=== PATIENT | female | born 1985 | race Caucasian/White ===

== ENCOUNTER 2023-08-05 19:51 | Emergency (ER) | payer BC, SELFPAY ==
[2023-08-05 20:01] VITALS: BP 136/80
[2023-08-05 20:18] LABS: Hematocrit 34.7 % (37.0-47.0); Hemoglobin 11.7 g/dL (12.0-16.0); Mean Corp Hgb Conc. 33.7 g/dL (33.0-37.0); Mean Corpuscular Hgb 29.4 pg (27.0-31.0); Mean Corpuscular Volume 87.2 fL (81.0-99.0); Mean Platelet Volume 8.7 fL (7.4-10.4); Platelet Count 376 10^3/uL (130-400); Red Blood Cell Count 3.98 10^6/uL (4.20-5.40); Red Cell Dist. Width 13.2 % (11.5-14.5)
[2023-08-05 20:38] LABS: Blood Urea Nitrogen 10 mg/dl (7-17); Calcium 8.7 mg/dl (8.4-10.2); Carbon Dioxide 24 mmol/L (22-30); Chloride 102 mmol/L (98-107); Glucose 100 mg/dl (70-99); Potassium 3.7 mmol/L (3.5-5.1); Sodium 134 mmol/L (135-145); eGFR > 60.00
--- NOTE | 2023-08-05 23:20 | ED.GENMED ---
History of Present Illness
General
Chief Complaint: Cold/Flu/URI Symptoms
Source: patient
Exam Limitations: none
Time Seen by Provider: 08/05/23 22:56
Nursing documentation reviewed up to this point in time: agreed with
Travel History
Have you had any contact with someone who has COVID-19?: No
Do you have any symptoms of coronavirus? Fever > 100 degrees, chills, cough, shortness of breath, sore throat, loss of taste or smell, muscle aches, or headache?: No
History of Present Illness
History of Present Illness:
38 yo female presents to the emergency department c/o cough and congestion for the past week. She had flu 1 week ago. She went to urgent care today, and they saw an opacity on the right lung concerning for pneumonia and sent her to the emergency
department. She had foot surgery on 07/03/2023.
Past History
Past History
ED Past Medical History: None
ED Past Surgical History: None
Social History
Tobacco: Non-smoker
Alcohol: None
Drug: None
Living: with family
Employment: Employed
Review of Systems
Review of Systems
Allergies reviewed?: Yes
All Other Systems: Not applicable
Constitutional: Reports no symptoms; Denies fever
EENT: Reports other (Congestion)
Respiratory: Reports cough
Cardiac: Reports no symptoms
ABD/GI: Reports no symptoms
: Reports no symptoms
Musculoskeletal: Reports no symptoms
Skin: Reports no symptoms
Neurological: Reports no symptoms
Endocrine: Reports no symptoms
Hematologic/Lymphatic: Reports no symptoms
Psychiatric: Reports no symptoms
Phy Exam
Physical Exam
Physical Exam:
Physical Exam
General: no apparent distress, not acutely ill
Neck: supple. no meningeal signs. normal posterior pharynx
Heart: s1/s2 regular rate and rhythm, no murmur. equal radial
pulses.
HEENT: Pupils equal round reactive to light, EOMI
Lungs: no acute respiratory distress. Rhonchi right lower lung
Abdomen: normal bowel sounds. not tender. no CVAT
Neuro: alert and oriented. no focal neurological deficits cranial nerves II through XII intact
Skin: no rash
Psychiatric: well kept. interactive and cooperative
Extremities: no edema. no calf tenderness. negative homans. good distal pulses
Course
Orders/Labs/Results
Orders:
Orders
08/05/23 20:12
BMP [Basic Metabolic Panel] Urgent
Complete Blood Count/No Diff Urgent
HCG, Serum Qualitative Screen Urgent
08/05/23 23:18
IV Insert/Care/Rem.- Treatment PRN
08/05/23 23:25
D-Dimer Urgent
08/06/23 00:14
CT Chest Pe Study Urgent
Comment:
Reason For Exam: elevated d dimer
08/06/23 00:16
Add On- LAB Urgent
Tests Added?: hcg
08/06/23 01:41
Doxycycline [Vibramycin] 100 mg PO NOW STA
Abnormal Lab Results
08/05/23 08/05/23
20:12 23:25
WBC 17.0 H 10^3/uL
(4.8-10.8)
RBC 3.98 L 10^6/uL
(4.20-5.40)
Hgb 11.7 L g/dL
(12.0-16.0)
Hct 34.7 L %
(37.0-47.0)
D-Dimer 0.72 H ug/mlFEU
(0.00-0.50)
Sodium 134 L mmol/L
(135-145)
Creatinine 0.5 L mg/dL
(0.6-1.0)
Glucose 100 H mg/dl
(70-99)
08/05/23 20:12
08/05/23 20:12
Vital Signs
Initial and Last Documented VS:
Initial Vital Signs
Temp Pulse Resp BP Pulse Ox
99.2 F 140 24 136/80 98
08/05/23 20:01 08/05/23 20:01 08/05/23 20:01 08/05/23 20:01 08/05/23 20:01
Last Documented Vital Signs
Temp Pulse Resp BP Pulse Ox
99.2 F 120 18 126/102 96
08/05/23 20:01 08/06/23 01:13 08/06/23 01:13 08/06/23 01:09 08/06/23 01:45
MDM/Problems Addressed
Differential Diagnosis Includes:
PE, pneumonia
MDM/Problems Addressed:
38-year-old female with right sided pneumonia, seen on chest x-ray at urgent care, concern for PE, and sent to emergency department. D-dimer elevated CT scan shows no evidence of PE.
*Radiology
Radiology exam reviewed: radiology read reviewed (CT chest no signs of PE, right middle and lower lobe pneumonia)
*Pulse Oximetry
Patient hypoxic: no
*EKG
Interpreted by ED Provider?: NA
*Civil Draftsman Interpretation
Rate: Civil Draftsman- N/A
*Critical Care Note
Total Time (30-74mins, 75-104mins- exclusive of procedures): Not Applicable
Patient Management
Social determinants of health affecting care: Living situation
Escalation/DeEscalation of care consider admission/obs:
Admit not indicated
ED Attending Note
-
Portions of this chart may have been created with voice recognition software.� Occasional wrong word or��sound alike� substitutions may have occurred due to the inherent limitations of voice recognition software.
Discharge Plan
Departure
Patient Disposition: Home (Routine Discharge)
Date of Disposition: 08/06/23
Time of Disposition: 01:42
Patient with high blood pressure during this ER visit?: Yes
Condition: Good
Discharge Problem:
Pneumonia involving right lung
Instructions: Pneumonia, Adult (DC), BLOOD PRESSURE
Prescriptions:
New
doxycycline hyclate 100 mg capsule
100 mg PO BID Qty: 20 0RF
No Action
pantoprazole [Protonix] 40 mg tablet,delayed release (DR/EC)
40 mg PO DAILY Qty: 30 0RF
Referrals:
Haley Bishop CRNP [Family Provider] -
Interventions
Interventions:
*Risk Screen - Suicide Last Done: 08/05/23 20:01
*General Assessment Last Done: 08/06/23 01:15
*Neglect/Abuse Screening Last Done: 08/05/23 20:01
ED- Fall Risk Assessment Last Done: 08/06/23 01:15
*ED COVID-19 Vaccine History Last Done: 08/06/23 01:15
ED- Pulmonary Assessment Last Done: 08/06/23 00:51
[2023-08-05 23:26] VITALS: BP 103/70
[2023-08-05 23:54] LABS: D-Dimer 0.72 ug/mlFEU (0.00-0.50)
[2023-08-06] VITALS: BP 113/68
[2023-08-06 00:49] LABS: HCG, Serum Qualitative Screen Negative
[2023-08-06 01:09] VITALS: BP 126/102
[2023-08-06] MEDS: VIBRAMYCIN 100 MG PO (01:47)
== END 2023-08-06 01:59 | disposition home or self-care (01) ==
LOC: EMR 19:51
PROVIDERS: Emergency Medicine; EMERGENCY PHYSICIAN Emergency Medicine; FAMILY PHYSICIAN Nurse Practitioner Family
DX: J18.9 Pneumonia, unspecified organism (principal); R03.0 Elevated blood-pressure reading, without diagnosis of hypertension
CPT/HCPCS: 99284; 71275; 80048; 84703; 85027; 85379; Q9967